=== PATIENT | male | born 1990 | race Caucasian/White ===

== ENCOUNTER 2016-11-02 22:56 | Emergency (ER) | payer OTHER ==
[~2016-11-02] VITALS: Ht 182.9 cm; Wt 106.8 kg
[2016-11-02 22:56] VITALS: BP 134/71
[2016-11-02] MEDS ORDERED: TYLE325T5 PO (23:08)
[2016-11-02] MEDS ORDERED: MOBI4TAB PO (23:08)
--- NOTE | 2016-11-03 07:42 | REP ---
Left ankle four views: There is an accessory ossicle at the tip of the fibula at the tip of the medial malleolus. There is a bone island in the distal tibial shaft. There is no fracture or dislocation. Mineralization is normal. The mortise is symmetric. Impression: Essentially negative left ankle. Signed by Dale Sequeira MD 11/03/2016 07:33 A
--- NOTE | 2016-11-03 07:43 | REP ---
Left foot four views: There is a small a avulsion from the lateral margin of the cuboid ossicle. Mineralization and joint spaces are otherwise unremarkable. There is no other fracture or dislocation. No calcifications or foreign bodies. Impression: Cuboid avulsion. Signed by Dale Sequeira MD 11/03/2016 07:34 A
--- NOTE | 2016-11-03 10:31 | ED PDOC ---
Post-Departure Follow-Up radiology report - cuboid avulsion fx - patient called by charge nurse and notified to remain nonweight bearing and follow-up with ortho Micki Akbar MD Nov 03, 2016 10:31
== END 2016-11-03 00:33 | disposition home or self-care (01) ==
LOC: M ED 22:56
DX: S93.402A Sprain of unspecified ligament of left ankle, initial encounter (principal); M89.8X6 Other specified disorders of bone, lower leg; W10.9XXA Fall (on) (from) unspecified stairs and steps, initial encounter; Y92.019 Unspecified place in single-family (private) house as the place of occurrence of the external cause; Y93.89 Activity, other specified; Y99.8 Other external cause status; F17.200 Nicotine dependence, unspecified, uncomplicated; Z79.899 Other long term (current) drug therapy

== ENCOUNTER 2016-11-05 04:33 | Emergency (ER) | payer OTHER ==
[~2016-11-05] VITALS: Ht 182.9 cm; Wt 106.8 kg
[~2016-11-05 04:33] MED LIST: MOBI4TAB PO; TYLE325T5 PO
[2016-11-05] MEDS ORDERED: KETOROLAC 60 MG/2 ML VIAL (J1885) IM ONE (06:15)
[2016-11-05] MEDS ORDERED: PERCOCET 5MG/325MG TAB PO ONE (06:15)
[2016-11-05] MEDS ORDERED: IBUP-1022 PO (06:23)
[2016-11-05 06:36] VITALS: BP 145/96
== END 2016-11-05 06:38 | disposition home or self-care (01) ==
LOC: M ED 04:33
DX: S92.212A Displaced fracture of cuboid bone of left foot, initial encounter for closed fracture (principal); X50.1XXA Overexertion from prolonged static or awkward postures, initial encounter; Y92.099 Unspecified place in other non-institutional residence as the place of occurrence of the external cause; Y93.01 Activity, walking, marching and hiking; Y99.9 Unspecified external cause status; F17.200 Nicotine dependence, unspecified, uncomplicated; Z79.899 Other long term (current) drug therapy
CPT/HCPCS: 96372; 99282; J1885